=== PATIENT | female | born 1975 | race American Indian/Alaskan Native ===

== ENCOUNTER 2016-11-30 21:57 | Inpatient (IN) | payer MEDICAID ==
[2016-11-30] MEDS ORDERED: DiphenhydrAMINE 50 mg/ml Inj IVP STA (22:56)
--- NOTE | 2016-11-30 22:56 | C.PDOC ---
History Of Present Illness 41 year old female presents to the ED with complaints of swelling to her lower lip since 13:00 today. Patient states the swelling began after she had a root canal done at her dentist's office. She notes she has had similar symptoms before after taking Clindamycin and she is unsure if she was given anything other than Novocain. Denies throat swelling, difficulty breathing, drooling, or any other complaints at this time. Time Seen by Provider: 11/30/16 22:48 Chief Complaint (Nursing): Allergic Reaction History Per: Patient History/Exam Limitations: no limitations Onset/Duration Of Symptoms: Hrs Current Symptoms Are (Timing): Still Present Possible Cause: Medication Associated Symptoms: Swelling. denies: Trouble Swallowing Severity: Mild Past Medical History Reviewed: Historical Data, Nursing Documentation, Vital Signs Vital Signs: Last Vital Signs Temp 98 F 12/01/16 08:12 Pulse 58 L 12/01/16 08:12 Resp 18 12/01/16 08:12 BP 112/59 L 12/01/16 08:12 Pulse Ox 97 12/01/16 08:12 - Medical History PMH: Anxiety, Asthma, Depression, Gastritis Comment Only: Bipolar Disorder (anxiety) Surgical History: Appendectomy Family History: States: Unknown Family Hx - Social History Hx Tobacco Use: No Hx Alcohol Use: No Hx Substance Use: No - Immunization History Hx Tetanus Toxoid Vaccination: No Hx Influenza Vaccination: No Hx Pneumococcal Vaccination: No Review Of Systems Except As Marked, All Systems Reviewed And Found Negative. Constitutional: Negative for: Fever, Chills ENT: Positive for: Other (+Lower lip swelling). Negative for: Throat Swelling Respiratory: Negative for: Shortness of Breath Gastrointestinal: Negative for: Nausea, Vomiting Skin: Negative for: Rash Physical Exam - Physical Exam Appears: Non-toxic, No Acute Distress Skin: Normal Color, Warm, Dry, No Rash Head: Atraumatic, Normacephalic Eye(s): bilateral: Normal Inspection Oral Mucosa: Moist Tongue: Normal Appearing, No Swelling Lips: Swelling (+Edema to lower lip) Gingiva: Normal Appearing Throat: Normal, No Erythema, No Exudate, No Drooling, Other (+Uvula midline) Neck: Supple Chest: Symmetrical Cardiovascular: Rhythm Regular Respiratory: Normal Breath Sounds, No Accessory Muscle Use, No Rales, No Rhonchi , No Wheezing Extremity: Normal ROM, No Deformity Neurological/Psych: Oriented x3, Normal Speech, Normal Cognition ED Course And Treatment - Laboratory Results Result Diagrams: 12/01/16 01:38 12/01/16 01:38 O2 Sat by Pulse Oximetry: 98 (Room air) Pulse Ox Interpretation: Normal Medical Decision Making Medical Decision Making: Progress: Upon reevaluation, patient is resting comfortably however lip is unchanged. disc w dr lynn, will admit for obs. Disposition - Disposition Disposition: HOSPITALIZED Disposition Time: 01:00 Condition: STABLE - Clinical Impression Clinical Impression: Angioedema - Scribe Statement The provider has reviewed the documentation as recorded by the Scribe Edna Chanel. Provider Attestation: All medical record entries made by the Scribe were at my direction and personally dictated by me. I have reviewed the chart and agree that the record accurately reflects my personal performance of the history, physical exam, medical decision making, and the department course for this patient. I have also personally directed, reviewed, and agree with the discharge instructions and disposition.
[2016-11-30] MEDS ORDERED: DiphenhydrAMINE 50 mg/ml Inj ONE (23:00)
[2016-12-01 01:40] LABS: BASO % 0.3 % (0.0-2.0); EOS % 0.2 % (0.0-4.0); HEMATOCRIT 30.7 % (34.0-47.0); LYMPH % 10.5 % (20.0-40.0); MEAN CELL VOLUME 83.3 fL (81.0-99.0); MEAN CORPUSCULAR HEMOGLOBIN 26.4 pg (27.0-31.0); MEAN CORPUSCULAR HGB CONC 31.7 g/dL (33.0-37.0); MEAN PLATELET VOLUME 7.4 fL (7.2-11.7); MONO # 0.2 K/uL (0.0-0.8); MONO % 2.2 % (0.0-10.0); WHITE BLOOD COUNT 9.5 K/uL (4.8-10.8)
[2016-12-01 01:58] LABS: CHLORIDE 105 mmol/L (98-107); POTASSIUM 3.9 mmol/L (3.6-5.2); SODIUM 140 mmol/L (132-148)
[2016-12-01 02:00] LABS: ALKALINE PHOSPHATASE 60 U/L (38-126); AST/SGOT 21 U/L (14-36); BILIRUBIN,TOTAL 0.4 mg/dL (0.2-1.3); CARBON DIOXIDE 23 mmol/L (22-30); GFR AFRICAN-AMERICAN > 60; TOTAL PROTEIN 7.4 g/dL (6.3-8.3)
[2016-12-01 02:01] LABS: ALT/SGPT 27 U/L (9-52); BLOOD UREA NITROGEN 12 mg/dL (7-17); CALCIUM 8.6 mg/dl (8.6-10.4); GLUCOSE,RANDOM 104 mg/dL (65-105)
[2016-12-01] MEDS ORDERED: MethylPREDNISolone 40 mg Vial ONE (05:26)
--- NOTE | 2016-12-01 18:09 | CP.PCM.CON ---
Past Patient History - Infectious Disease Hx of Infectious Diseases: None - Past Medical History & Family History Past Medical History?: Yes - Past Social History Smoking Status: Never Smoked - PULMONARY Hx Asthma: Yes - MUSCULOSKELETAL/RHEUMATOLOGICAL Hx Falls: No - GASTROINTESTINAL Hx Gastritis: Yes - PSYCHIATRIC Hx Anxiety: Yes Hx Bipolar Disorder: (anxiety) Hx Depression: Yes Hx Substance Use: No - SURGICAL HISTORY Hx Appendectomy: Yes - ANESTHESIA Hx Anesthesia: Yes Hx Anesthesia Reactions: No Meds Allergies/Adverse Reactions: Allergies Allergy/AdvReac Type Severity Reaction Status Date / Time ciprofloxacin [From Cipro] Allergy Verified 10/27/16 20:44 ciprofloxacin HCl Allergy Verified 10/27/16 20:44 [From Cipro] clindamycin Allergy Verified 10/27/16 20:44 Penicillins Allergy Verified 10/27/16 20:44 seafood Allergy Uncoded 10/27/16 20:44 - Medications Medications: Current Medications Diphenhydramine HCl (Benadryl) 25 mg PO Q8 [facility] Last Admin: 12/01/16 13:30 Dose: 25 mg Methylprednisolone (Solu-Medrol) 60 mg IV Q8 [facility] Last Admin: 12/01/16 13:30 Dose: 60 mg Physical Exam - Head Exam Head Exam: ATRAUMATIC, NORMAL INSPECTION, NORMOCEPHALIC - Eye Exam Eye Exam: EOMI, Normal appearance, PERRL Pupil Exam: NORMAL ACCOMODATION, PERRL - ENT Exam ENT Exam: Mucous Membranes Moist, Normal Exam - Neck Exam Neck exam: Positive for: Normal Inspection - Respiratory Exam Respiratory Exam: Decreased Breath Sounds - Cardiovascular Exam Cardiovascular Exam: REGULAR RHYTHM, +S1, +S2 - GI/Abdominal Exam GI & Abdominal Exam: Diminished Bowel Sounds, Soft - Rectal Exam Rectal Exam: Deferred Results - Vital Signs Recent Vital Signs: Last Vital Signs Temp 98 F 12/01/16 15:39 Pulse 59 L 12/01/16 15:39 Resp 18 12/01/16 15:39 BP 113/66 12/01/16 15:39 Pulse Ox 99 12/01/16 15:39 - Labs Result Diagrams: 12/01/16 01:38 12/01/16 01:38 Labs: Laboratory Results - last 24 hr 12/01/16 01:38 WBC 9.5 RBC 3.69 L Hgb 9.7 L Hct 30.7 L MCV 83.3 D MCH 26.4 L MCHC 31.7 L RDW 15.0 H Plt Count 273 MPV 7.4 Neut % (Auto) 86.8 H Lymph % (Auto) 10.5 L [place] % (Auto) 2.2 Eos % (Auto) 0.2 Baso % (Auto) 0.3 Neut # 8.3 H Lymph # 1.0 [place] # 0.2 Eos # 0.0 Baso # 0.0 Sodium 140 Potassium 3.9 Chloride 105 Carbon Dioxide 23 Anion Gap 16 BUN 12 Creatinine 0.7 Est GFR ( Amer) > 60 Est GFR (Non-Af Amer) > 60 Random Glucose 104 Calcium 8.6 Total Bilirubin 0.4 AST 21 ALT 27 Alkaline Phosphatase 60 Total Protein 7.4 Albumin 3.8 Globulin 3.7 Albumin/Globulin Ratio 1.0
--- NOTE | 2016-12-01 22:45 | CP.PCM.HP ---
Past Patient History - Infectious Disease Hx of Infectious Diseases: None - Past Medical History & Family History Past Medical History?: Yes - Past Social History Smoking Status: Never Smoked - PULMONARY Hx Asthma: Yes - MUSCULOSKELETAL/RHEUMATOLOGICAL Hx Falls: No - GASTROINTESTINAL Hx Gastritis: Yes - PSYCHIATRIC Hx Anxiety: Yes Hx Bipolar Disorder: (anxiety) Hx Depression: Yes Hx Substance Use: No - SURGICAL HISTORY Hx Appendectomy: Yes - ANESTHESIA Hx Anesthesia: Yes Hx Anesthesia Reactions: No Meds Allergies/Adverse Reactions: Allergies Allergy/AdvReac Type Severity Reaction Status Date / Time ciprofloxacin [From Cipro] Allergy Verified 10/27/16 20:44 ciprofloxacin HCl Allergy Verified 10/27/16 20:44 [From Cipro] clindamycin Allergy Verified 10/27/16 20:44 Penicillins Allergy Verified 10/27/16 20:44 seafood Allergy Uncoded 10/27/16 20:44 Results - Vital Signs Recent Vital Signs: Last Vital Signs Temp 98 F 12/01/16 15:39 Pulse 59 L 12/01/16 16:00 Resp 18 12/01/16 15:39 BP 113/66 12/01/16 15:39 Pulse Ox 99 12/01/16 15:39 - Labs Result Diagrams: 12/01/16 01:38 12/01/16 01:38 Labs: Laboratory Results - last 24 hr 12/01/16 01:38 WBC 9.5 RBC 3.69 L Hgb 9.7 L Hct 30.7 L MCV 83.3 D MCH 26.4 L MCHC 31.7 L RDW 15.0 H Plt Count 273 MPV 7.4 Neut % (Auto) 86.8 H Lymph % (Auto) 10.5 L [place] % (Auto) 2.2 Eos % (Auto) 0.2 Baso % (Auto) 0.3 Neut # 8.3 H Lymph # 1.0 [place] # 0.2 Eos # 0.0 Baso # 0.0 Sodium 140 Potassium 3.9 Chloride 105 Carbon Dioxide 23 Anion Gap 16 BUN 12 Creatinine 0.7 Est GFR ( Amer) > 60 Est GFR (Non-Af Amer) > 60 Random Glucose 104 Calcium 8.6 Total Bilirubin 0.4 AST 21 ALT 27 Alkaline Phosphatase 60 Total Protein 7.4 Albumin 3.8 Globulin 3.7 Albumin/Globulin Ratio 1.0
--- NOTE | 2016-12-02 12:49 | CP.PCM.PN ---
Subjective - Date & Time of Evaluation Date of Evaluation: 12/02/16 Time of Evaluation: 12:00 - Subjective Subjective: clinically same Objective - Vital Signs/Intake and Output Vital Signs (last 24 hours): Temp Pulse Resp BP Pulse Ox 97.7 F 51 L 20 105/65 97 12/02/16 07:49 12/02/16 08:12 12/02/16 07:49 12/02/16 07:49 12/02/16 07:49 - Medications Medications: Current Medications Diphenhydramine HCl (Benadryl) 25 mg PO Q8 [facility] Last Admin: 12/02/16 06:45 Dose: 25 mg Methylprednisolone (Solu-Medrol) 60 mg IV Q8 [facility] Last Admin: 12/02/16 06:45 Dose: 60 mg - Labs Labs: 12/01/16 01:38 12/01/16 01:38 - Constitutional Appears: Well - Head Exam Head Exam: ATRAUMATIC, NORMAL INSPECTION, NORMOCEPHALIC - Eye Exam Eye Exam: EOMI, Normal appearance, PERRL Pupil Exam: NORMAL ACCOMODATION, PERRL - ENT Exam ENT Exam: Mucous Membranes Moist, Normal Exam - Neck Exam Neck Exam: Full ROM, Normal Inspection. absent: Lymphadenopathy - Respiratory Exam Respiratory Exam: Decreased Breath Sounds - Cardiovascular Exam Cardiovascular Exam: REGULAR RHYTHM, +S1, +S2 - GI/Abdominal Exam GI & Abdominal Exam: Soft, Diminished Bowel Sounds - Rectal Exam Rectal Exam: Deferred Assessment and Plan - Assessment and Plan (Free Text) Plan: discharge tomorrow jessica same iv solumedrol midly lip swollen no breathing difficulty pt adv not to take either clindamycin or novacine nad pt understood
[2016-12-02] MEDS: MethylPREDNISolone 40 mg Vial IV SCH ×2 (14:17→21:47)
[2016-12-03] MEDS: MethylPREDNISolone 40 mg Vial IV SCH ×3 (06:37→21:52)
--- NOTE | 2016-12-03 09:28 | CP.PCM.PN ---
Subjective - Date & Time of Evaluation Date of Evaluation: 12/03/16 Time of Evaluation: 11:00 - Subjective Subjective: Dr. Chung service: Patient is seen and examined in room. She reports coming to the hospital because of swelling around her lips and mouth after having a dental procedure. She reports no prior similar experience. She thinks she might be allergic to the Novacaine given at the dental office. Objective - Vital Signs/Intake and Output Vital Signs (last 24 hours): Temp Pulse Resp BP Pulse Ox 98.4 F 50 L 20 117/72 99 12/03/16 00:00 12/03/16 00:00 12/03/16 00:00 12/03/16 00:00 12/03/16 00:00 - Medications Medications: Current Medications Diphenhydramine HCl (Benadryl) 25 mg PO Q8 [facility] Last Admin: 12/03/16 06:37 Dose: 25 mg Methylprednisolone (Solu-Medrol) 60 mg IV Q8 [facility] Last Admin: 12/03/16 06:37 Dose: 60 mg - Labs Labs: 12/01/16 01:38 12/01/16 01:38 - Constitutional Appears: Non-toxic, No Acute Distress - Head Exam Head Exam: NORMAL INSPECTION - Eye Exam Eye Exam: Normal appearance - ENT Exam ENT Exam: Normal Exam - Respiratory Exam Respiratory Exam: Clear to Ausculation Bilateral. absent: Rhonchi, Wheezes - Cardiovascular Exam Cardiovascular Exam: Bradycardia, REGULAR RHYTHM, +S1, +S2. absent: Gallop, Rubs - GI/Abdominal Exam GI & Abdominal Exam: Soft - Extremities Exam Extremities Exam: Pedal Edema Assessment and Plan (1) Angioedema Assessment & Plan: Mostly resolved, continue with steroids, given medrol dose pack on dischage Status: Acute (2) Tachy-luz maria syndrome Assessment & Plan: Dr. Calhoun consulted, will do echo tomorrow and monitor patient on tele over night. Most likely dc tomorrow if echo is good. Status: Acute
--- NOTE | 2016-12-03 09:31 | CP.PCM.PN ---
Subjective - Date & Time of Evaluation Date of Evaluation: 12/03/16 Time of Evaluation: 10:40 - Subjective Subjective: clinically same Objective - Vital Signs/Intake and Output Vital Signs (last 24 hours): Temp Pulse Resp BP Pulse Ox 98.4 F 50 L 20 117/72 99 12/03/16 00:00 12/03/16 00:00 12/03/16 00:00 12/03/16 00:00 12/03/16 00:00 - Medications Medications: Current Medications Diphenhydramine HCl (Benadryl) 25 mg PO Q8 [facility] Last Admin: 12/03/16 06:37 Dose: 25 mg Methylprednisolone (Solu-Medrol) 60 mg IV Q8 [facility] Last Admin: 12/03/16 06:37 Dose: 60 mg - Labs Labs: 12/01/16 01:38 12/01/16 01:38 - Constitutional Appears: Well - Head Exam Head Exam: ATRAUMATIC, NORMAL INSPECTION, NORMOCEPHALIC - Eye Exam Eye Exam: EOMI, Normal appearance, PERRL Pupil Exam: NORMAL ACCOMODATION, PERRL - ENT Exam ENT Exam: Mucous Membranes Moist, Normal Exam - Neck Exam Neck Exam: Full ROM, Normal Inspection. absent: Lymphadenopathy - Respiratory Exam Respiratory Exam: Decreased Breath Sounds - Cardiovascular Exam Cardiovascular Exam: REGULAR RHYTHM, +S1, +S2 - GI/Abdominal Exam GI & Abdominal Exam: Soft, Diminished Bowel Sounds - Rectal Exam Rectal Exam: Deferred
[2016-12-03] MEDS ORDERED: Petrolatum Oint Foilpak (5 gm) TOP PRN (10:40)
--- NOTE | 2016-12-03 15:37 | CP.PCM.CON ---
Past Patient History - Infectious Disease Hx of Infectious Diseases: None - Past Medical History & Family History Past Medical History?: Yes - Past Social History Smoking Status: Never Smoked - PULMONARY Hx Asthma: Yes - MUSCULOSKELETAL/RHEUMATOLOGICAL Hx Falls: No - GASTROINTESTINAL Hx Gastritis: Yes - PSYCHIATRIC Hx Anxiety: Yes Hx Bipolar Disorder: (anxiety) Hx Depression: Yes Hx Substance Use: No - SURGICAL HISTORY Hx Appendectomy: Yes - ANESTHESIA Hx Anesthesia: Yes Hx Anesthesia Reactions: No Meds Home Medications: Home Medication List Medication Instructions Recorded Confirmed Type Methylprednisolone [Medrol Dose See Taper PO DAILY #21 mg 12/03/16 Rx Pack (21 tabs)] Allergies/Adverse Reactions: Allergies Allergy/AdvReac Type Severity Reaction Status Date / Time ciprofloxacin [From Cipro] Allergy Verified 10/27/16 20:44 ciprofloxacin HCl Allergy Verified 10/27/16 20:44 [From Cipro] clindamycin Allergy Verified 10/27/16 20:44 Penicillins Allergy Verified 10/27/16 20:44 seafood Allergy Uncoded 10/27/16 20:44 - Medications Medications: Current Medications Diphenhydramine HCl (Benadryl) 25 mg PO Q8 [facility] Last Admin: 12/03/16 14:27 Dose: 25 mg Emollient Ointment (Vaseline Oint) 5 gm TOP Q4 PRN PRN Reason: Dry skin Methylprednisolone (Solu-Medrol) 60 mg IV Q8 [facility] Last Admin: 12/03/16 14:28 Dose: 60 mg Pantoprazole Sodium (Protonix Inj) 40 mg IVP DAILY [facility] Last Admin: 12/03/16 11:13 Dose: Not Given Results - Vital Signs Recent Vital Signs: Last Vital Signs Temp 98 F 12/03/16 08:00 Pulse 46 L 12/03/16 08:00 Resp 20 12/03/16 08:00 BP 113/58 L 12/03/16 08:00 Pulse Ox 99 12/03/16 08:00 - Labs Result Diagrams: 12/01/16 01:38 12/01/16 01:38
[2016-12-04] MEDS: MethylPREDNISolone 40 mg Vial IV SCH ×2 (06:21→13:26)
[2016-12-04 07:30] LABS: HEMATOCRIT 35.9 % (34.0-47.0); LYMPH # 1.6 K/uL (1.0-4.3); LYMPH % 9.3 % (20.0-40.0); MEAN CELL VOLUME 84.4 fL (81.0-99.0); MEAN CORPUSCULAR HEMOGLOBIN 26.2 pg (27.0-31.0); MEAN CORPUSCULAR HGB CONC 31.1 g/dL (33.0-37.0); MEAN PLATELET VOLUME 8.5 fL (7.2-11.7); MONO # 0.8 K/uL (0.0-0.8); MONO % 4.7 % (0.0-10.0); NRBC % 0.1 % (0.0-2.0); PLATELET COUNT 332 K/uL (130-400); RED CELL DISTRIBUTION WIDTH 14.7 % (11.5-14.5)
[2016-12-04 07:31] LABS: CHLORIDE 93 mmol/L (98-107); POTASSIUM 3.9 mmol/L (3.6-5.2); SODIUM 138 mmol/L (132-148); WHITE BLOOD COUNT 17.1 K/uL (4.8-10.8)
[2016-12-04 07:33] LABS: AST/SGOT 13 U/L (14-36); BILIRUBIN,TOTAL 0.7 mg/dL (0.2-1.3); CARBON DIOXIDE 30 mmol/L (22-30); GFR AFRICAN-AMERICAN > 60
[2016-12-04 07:34] LABS: ALKALINE PHOSPHATASE 53 U/L (38-126); ALT/SGPT 13 U/L (9-52); BLOOD UREA NITROGEN 16 mg/dL (7-17); CALCIUM 8.5 mg/dl (8.6-10.4); GLUCOSE,RANDOM 125 mg/dL (65-105); PHOSPHOROUS 3.4 mg/dL (2.5-4.5); TOTAL PROTEIN 7.7 g/dL (6.3-8.3)
[2016-12-04 07:35] LABS: MAGNESIUM 2.1 mg/dL (1.6-2.3)
[2016-12-04 09:00] VITALS: TEMP 98.1; O2SAT 98
[2016-12-04 09:45] LABS: LARGE PLATELETS PRESENT; NEUTROPHIL 91 % (50-75); TOTAL CELLS COUNTED 100
--- NOTE | 2016-12-04 16:20 | CP.PCM.PN ---
Subjective - Date & Time of Evaluation Date of Evaluation: 12/04/16 Time of Evaluation: 16:18 - Subjective Subjective: 41 y/o female admitted with with angioedema, possible allergic reaction to novacaine given at dental office, Pt seen and examined today, no swelling noted at lip and mouth, no drooling, lungs CTA b/l, resp easy and unlabored. NAD. Patient to be discharged home per Dr. Chung. She will be discharged home with a medrol dose pack. Benadryl 25 mg po as needed for itching. She will follow up with Dr. Calhoun in his office after discharge. She will return to ED if symptoms persist or worsen. Objective - Vital Signs/Intake and Output Vital Signs (last 24 hours): Temp Pulse Resp BP Pulse Ox 98.1 F 46 L 18 144/72 98 12/04/16 07:00 12/04/16 08:12 12/04/16 07:00 12/04/16 07:00 12/04/16 07:00 - Medications Medications: Current Medications Diphenhydramine HCl (Benadryl) 25 mg PO Q8 [facility] Last Admin: 12/04/16 13:26 Dose: 25 mg Emollient Ointment (Vaseline Oint) 5 gm TOP Q4 PRN PRN Reason: Dry skin Methylprednisolone (Solu-Medrol) 60 mg IV Q8 [facility] Last Admin: 12/04/16 13:26 Dose: 60 mg Pantoprazole Sodium (Protonix Inj) 40 mg IVP DAILY [facility] Last Admin: 12/04/16 09:21 Dose: 40 mg - Labs Labs: 12/04/16 07:08 12/04/16 07:08
[2016-12-04 16:26] VITALS: BP 111/70; RESP 20
[2016-12-04 16:54] VITALS: PULSE 54
--- NOTE | 2016-12-04 17:59 | CP.PCM.PN ---
Subjective - Date & Time of Evaluation Date of Evaluation: 12/04/16 Time of Evaluation: 07:10 Objective - Vital Signs/Intake and Output Vital Signs (last 24 hours): Temp Pulse Resp BP Pulse Ox 98.1 F 54 L 20 111/70 98 12/04/16 16:25 12/04/16 16:25 12/04/16 16:25 12/04/16 16:25 12/04/16 16:25 - Labs Labs: 12/04/16 07:08 12/04/16 07:08
--- NOTE | 2016-12-06 22:45 | CARD ---
APPROVED REPORT EXAM: Two-dimensional and M-mode echocardiogram with Doppler and color Doppler. Other Information Quality : GoodRhythm : NSR INDICATION Dizziness and Vertigo M-Mode DIMENSIONS RVDd2.14 (2.1-3.2cm)Left Atrium (MM)4.13 (2.5-4.0cm) IVSd1.18 (0.7-1.1cm)Aortic Root2.66 (2.2-3.7cm) LVDd4.76 (4.0-5.6cm)Aortic Cusp Exc.1.70 (1.5-2.0cm) PWd1.18 (0.7-1.1cm)FS (%) 48 % LVDs2.47 (2.0-3.8cm)LVEF (%)79 (>50%) Aortic Valve AoV Peak Akrpsbtd859.4cm/Nitesh Peak GR.11mmHg Mitral Valve MV E Oxqneoxm87.7cm/sMV A Dklcxzrm10.4cm/sE/A ratio1.2 TDI E/Lateral E'0.0E/Medial E'0.0 Tricuspid Valve TR Peak Zphgrvzm479mg/sTR Peak Gr.[id number] LEFT VENTRICLE The left ventricle is normal size. There is borderline to mild concentric left ventricular hypertrophy. Left ventricle systolic function is normal. The Ejection Fraction is >70%. There is normal LV segmental wall motion. The left ventricular diastolic function is normal. RIGHT VENTRICLE The right ventricle is normal size. There is normal right ventricular wall thickness. The right ventricular systolic function is normal. ATRIA The left atrium is mildly dilated. The right atrium size is normal. The interatrial septum is intact with no evidence for an atrial septal defect. AORTIC VALVE The aortic valve is normal in structure. No aortic regurgitation is present. There is no aortic valvular stenosis. There is no aortic valvular vegetation. MITRAL VALVE The mitral valve is normal in structure. There is no evidence of mitral valve prolapse. There is no mitral valve stenosis. Mitral regurgitation is trace to mild. TRICUSPID VALVE The tricuspid valve is normal in structure. There is mild tricuspid regurgitation. Right ventricular systolic pressure is estimated at less than 30 mmHg. There is no pulmonary hypertension. PULMONIC VALVE The pulmonic valve is not well visualized. There is no pulmonic valvular regurgitation. GREAT VESSELS The aortic root is normal in size. PERICARDIAL EFFUSION There is no significant pericardial effusion. <Conclusion> Left ventricle systolic function is normal. The Ejection Fraction is >70%. Hypertensive heart disease. No aortic regurgitation is present. Mitral regurgitation is trace to mild. There is mild tricuspid regurgitation. There is no pulmonary hypertension. There is no pulmonic valvular regurgitation.
== END 2016-12-04 17:05 | disposition home or self-care (01) | DRG 447 ==
LOC: C.ER 21:57 → UNDOADMOB 12-01 01:02 → C.9E 12-01 01:02 → C.5T 12-01 06:48 → C.9E 12-01 06:48 → C.5T 12-01 07:55 → INTOOBSV 12-01 13:56 → OBSVTOIN 12-01 13:56 → C.5T 12-01 17:43 → C.9E 12-03 13:56 → C.5T 12-03 13:56 → OBSVTOIN 12-03 13:56 → UNDODISIN 12-04 17:05
PROVIDERS: ADMIT Internal Medicine Nephrology; ATTEND Internal Medicine Nephrology
DX: T78.3XXA Angioneurotic edema, initial encounter (principal); I49.5 Sick sinus syndrome; F31.9 Bipolar disorder, unspecified; J45.909 Unspecified asthma, uncomplicated

== ENCOUNTER 2016-12-13 15:54 | Emergency (ER) | payer MEDICAID ==
[2016-12-13] MEDS ORDERED: Sodium Chloride 0.9% 1,000 ML IV ONE (19:11)
[2016-12-13 20:07] LABS: RBC URINE 7 /hpf (0-3); URINE BACTERIA RARE (<OCC); URINE BILIRUBIN NEGATIVE (NEGATIVE); URINE BLOOD NEGATIVE (NEGATIVE); URINE COLOR Yellow (YELLOW); URINE GLUCOSE (UA) NORMAL (Normal); URINE KETONE NEGATIVE (NEGATIVE); URINE LEUKOCYTE ESTERASE NEG Leu/uL (Negative); URINE PROTEIN NEGATIVE (NEGATIVE); URINE UROBILINOGEN NORMAL mg/dL (0.2-1.0); WBC URINE 2 /hpf (0-5)
[2016-12-13] MEDS ORDERED: Sodium Chloride 0.9% 1,000 ML ONE (20:08)
[2016-12-13 20:12] LABS: BASO # 0.2 K/uL (0.0-0.2); BASO % 1.3 % (0.0-2.0); EOS # 0.1 K/uL (0.0-0.7); EOS % 0.8 % (0.0-4.0); HEMATOCRIT 33.1 % (34.0-47.0); LYMPH % 25.7 % (20.0-40.0); MEAN CELL VOLUME 83.8 fL (81.0-99.0); MEAN CORPUSCULAR HEMOGLOBIN 26.3 pg (27.0-31.0); MEAN CORPUSCULAR HGB CONC 31.3 g/dL (33.0-37.0); MEAN PLATELET VOLUME 7.4 fL (7.2-11.7); MONO # 0.6 K/uL (0.0-0.8); MONO % 4.7 % (0.0-10.0); RED CELL DISTRIBUTION WIDTH 15.1 % (11.5-14.5); WHITE BLOOD COUNT 11.9 K/uL (4.8-10.8)
[2016-12-13 20:18] LABS: CHLORIDE 98 mmol/L (98-107); SODIUM 135 mmol/L (132-148)
[2016-12-13 20:20] LABS: GFR AFRICAN-AMERICAN > 60
[2016-12-13 20:21] LABS: ALB/GLOB RATIO 1.2 (1.0-2.1); ALKALINE PHOSPHATASE 61 U/L (38-126); ALT/SGPT 17 U/L (9-52); AST/SGOT 19 U/L (14-36); BILIRUBIN,TOTAL 0.4 mg/dL (0.2-1.3); BLOOD UREA NITROGEN 18 mg/dL (7-17); CALCIUM 8.8 mg/dl (8.6-10.4); CARBON DIOXIDE 23 mmol/L (22-30); GLUCOSE,RANDOM 115 mg/dL (65-105); MAGNESIUM 2.3 mg/dL (1.6-2.3); TOTAL PROTEIN 7.5 g/dL (6.3-8.3)
[2016-12-13] MEDS ORDERED: DiphenhydrAMINE 50 mg/ml Inj IVP STA (20:27)
[2016-12-13] MEDS ORDERED: DiphenhydrAMINE 50 mg/ml Inj ONE (20:29)
[2016-12-13 20:36] VITALS: O2SAT 98
--- NOTE | 2016-12-13 21:44 | C.PDOC ---
History Of Present Illness Pt c/o feeling tired/generalized weakness. Time Seen by Provider: 12/13/16 18:58 History Per: Patient Onset/Duration Of Symptoms: Days (few), Waxing/Waning Current Symptoms Are (Timing): Still Present Current Symptoms: Fatigue/malaise Fall Associated With With Symptoms: No Severity: Moderate Additional History Per: Prior Records - Symptoms Of CVA Associated Symptoms: denies: Impaired Speech, Seizure Activity, New Vision Deficit(Left), New Vision Deficit(Right), New Confusion Recent Head Trauma: No Past Medical History Reviewed: Historical Data, Nursing Documentation, Vital Signs Vital Signs: Last Vital Signs Temp 98 F 12/13/16 20:31 Pulse 106 H 12/13/16 20:31 Resp 18 12/13/16 20:31 BP 139/87 12/13/16 20:31 Pulse Ox 98 12/13/16 20:31 - Medical History PMH: Anxiety, Asthma, Depression, Gastritis Comment Only: Bipolar Disorder (anxiety) Surgical History: Appendectomy Family History: States: Unknown Family Hx - Social History Hx Tobacco Use: No Hx Alcohol Use: No Hx Substance Use: No - Immunization History Hx Tetanus Toxoid Vaccination: No Hx Influenza Vaccination: No Hx Pneumococcal Vaccination: No Review Of Systems Except As Marked, All Systems Reviewed And Found Negative. Constitutional: Negative for: Fever, Weakness Cardiovascular: Negative for: Chest Pain Respiratory: Positive for: Shortness of Breath. Negative for: Hemoptysis Gastrointestinal: Positive for: Nausea. Negative for: Vomiting, Abdominal Pain , Diarrhea Genitourinary: Negative for: Dysuria Musculoskeletal: Negative for: Neck Pain, Back Pain Skin: Negative for: Rash Neurological: Negative for: Weakness, Numbness, Seizures, Altered Mental Status Physical Exam - Physical Exam Appears: Non-toxic, No Acute Distress Skin: Normal Color, Warm, Dry, No Rash Head: Atraumatic, Normacephalic Eye(s): bilateral: PERRL, EOMI Neck: Normal ROM, Supple Cardiovascular: Rhythm Regular Respiratory: Normal Breath Sounds, No Accessory Muscle Use Gastrointestinal/Abdominal: Soft, No Tenderness Back: No CVA Tenderness Extremity: Normal ROM, No Pedal Edema, No Calf Tenderness Neurological/Psych: Oriented x3, Normal Motor, Normal Sensation ED Course And Treatment - Laboratory Results Result Diagrams: 12/13/16 20:06 12/13/16 20:06 Interpretation Of Abnormal: Mild anemia. Urine POC: Negative ECG: Interpreted By Me, Viewed By Me ECG Rhythm: Sinus Rhythm ECG Interpretation: No Acute Changes Rate From EC O2 Sat by Pulse Oximetry: 98 Pulse Ox Interpretation: Normal - Radiology CXR: Interpreted by Me, Viewed By Me CXR Interpretation: Yes: No Acute Disease, Heart Size (WNL) Progress - Interventions Interventions:: Observation, Intravenous fluid - Medications Administered Intravenous: Antiemetic, Antihistamine (H-1) - Data Reviewed Data Reviewed: Lab, Diagnostic imaging, EKG, Old records - Patient Status Patient status: Mostly improved - Continuity of Care Discussed patient case with:: Patient, ED Nurse - Patient Plan Patient Plan: Discharge, F/U with PCP, Continue present meds Disposition Counseled Patient/Family Regarding: Studies Performed, Diagnosis, Need For Followup, Rx Given - Disposition Referrals: David Cooper Jr., MD [Medical Doctor] - Disposition: HOME/ ROUTINE Disposition Time: 21:54 Condition: IMPROVED Additional Instructions: Drink plenty of fluids. Follow up with your doctor for further evaluation and treatment. Return to the ER if you develop chest pain, pass out, worsening of symptoms or if you have any other concerns. Prescriptions: Ferrous Sulfate [Feosol] 325 mg PO TID #30 tab Multivit with Iron-Minerals [Super Multiple] 1 each PO DAILY #30 tablet Instructions: Anemia (ED) Print Language: SAMI - Clinical Impression Clinical Impression: Mild anemia, Malaise and fatigue
[2016-12-13 22:04] VITALS: BP 106/55; PULSE 73; RESP 15; TEMP 98.3
--- NOTE | 2016-12-14 09:59 | RAD ---
PROCEDURE: CHEST RADIOGRAPH, 1 VIEW HISTORY: SOB COMPARISON: Comparison is made to 01/14/2013 FINDINGS: LUNGS: Clear. PLEURA: No pneumothorax or pleural fluid seen. CARDIOVASCULAR: Normal. OSSEOUS STRUCTURES: No significant abnormalities. VISUALIZED UPPER ABDOMEN: Normal. OTHER FINDINGS: None. IMPRESSION: No active disease.
--- NOTE | 2016-12-15 19:05 | CARD ---
APPROVED REPORT EKG Measurement Heart [id number] <Conclusion> Normal sinus rhythm Normal ECG
== END 2016-12-13 22:14 | disposition home or self-care (01) ==
LOC: C.ER 15:54
DX: D64.9 Anemia, unspecified (principal); R53.81 Other malaise; R53.83 Other fatigue
CPT/HCPCS: 71010; 80053; 81001; 83735; 84484; 84703; 85025; 93005; 96361; 96374; 96375; 99285; J1200; J2765; J7040

== ENCOUNTER 2017-08-15 18:20 | Emergency (ER) | payer OTHER, MEDICAID ==
[2017-08-15 18:36] VITALS: BP 127/81; PULSE 65; RESP 18; TEMP 97.9; O2SAT 100
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
== END 2017-08-15 19:20 | disposition home or self-care (01) ==
LOC: C.ER 18:20
DX: S13.4XXA Sprain of ligaments of cervical spine, initial encounter (principal); V49.9XXA Car occupant (driver) (passenger) injured in unspecified traffic accident, initial encounter

== ENCOUNTER 2017-10-31 17:17 | Emergency (ER) | payer MEDICAID ==
[2017-10-31 18:34] VITALS: BP 126/88
--- NOTE | 2017-10-31 19:39 | C.PDOC ---
History Of Present Illness 42 year old female presents to the ED for evaluation of flu like symptoms x2-3 days. Patient complains of body aches, fevers, cough, headache and sore throat. No vomiting or diarrhea. No recent travel. Patient also complaining of right eye pain. Time Seen by Provider: 10/31/17 19:24 Chief Complaint (Nursing): Flu-like Symptoms History Per: Patient History/Exam Limitations: no limitations Onset/Duration Of Symptoms: Days Current Symptoms Are (Timing): Still Present Location Of Pain: Throat, Diffuse Myalgias Associated Symptoms: Fever, Sore Throat, Cough, Myalgias. denies: Vomiting, Diarrhea Recent travel outside of the [place]: No Past Medical History Reviewed: Historical Data, Nursing Documentation, Vital Signs Vital Signs: Last Vital Signs Temp 98.8 F 10/31/17 20:29 Pulse 71 10/31/17 20:29 Resp 20 10/31/17 20:29 BP 126/88 10/31/17 18:31 Pulse Ox 99 11/01/17 03:24 - Medical History PMH: Anxiety, Asthma, Depression, Gastritis Comment Only: Bipolar Disorder (anxiety) Surgical History: Appendectomy Family History: States: Unknown Family Hx - Social History Hx Tobacco Use: No Hx Alcohol Use: No Hx Substance Use: No - Immunization History Hx Tetanus Toxoid Vaccination: No Hx Influenza Vaccination: No Hx Pneumococcal Vaccination: No Review Of Systems Except As Marked, All Systems Reviewed And Found Negative. Constitutional: Positive for: Fever. Negative for: Chills Eyes: Positive for: Pain ENT: Positive for: Throat Pain. Negative for: Ear Pain Cardiovascular: Negative for: Chest Pain Respiratory: Positive for: Cough. Negative for: Shortness of Breath Gastrointestinal: Negative for: Nausea, Vomiting, Abdominal Pain, Diarrhea Musculoskeletal: Positive for: Other (myalgias) Skin: Negative for: Rash Neurological: Positive for: Headache Physical Exam - Physical Exam Appears: Well, No Acute Distress Skin: Normal Color, Warm, Dry Head: Atraumatic, Normacephalic Eye(s): bilateral: Normal Inspection, PERRL, EOMI Nose: Normal Oral Mucosa: Moist Tongue: Normal Appearing Lips: Normal Appearing Throat: Normal Neck: Normal, Normal ROM, Supple Cardiovascular: Rhythm Regular Respiratory: Normal Breath Sounds Gastrointestinal/Abdominal: Soft, No Tenderness Back: Normal Inspection Extremity: Normal ROM, No Deformity Neurological/Psych: Oriented x3, Normal Speech ED Course And Treatment O2 Sat by Pulse Oximetry: 99 Pulse Ox Interpretation: Normal - Radiology CXR: Interpreted by Me, Viewed By Me CXR Interpretation: Yes: No Acute Disease. No: Infiltrates Progress Note: Albuterol nebs, phenergan with codeine and prednisone PO were ordered. Pt remains stable, active in ED wi VSS. Pt advised to maintain good PO hydration and fever management and close follow up with PMD in 1-2 days. Return precautions discussed and understood by pt who understands and agrees with plan Reassessment Condition: Improved Medical Decision Making Medical Decision Making: Impression: influenza, viral illness Will give breathing treatment, Benadryl, and Tylenol and reevaluate. Patient feeling improved. Will discharge home with Tamiflu. Disposition Counseled Patient/Family Regarding: Diagnosis, Need For Followup - Disposition Disposition: HOME/ ROUTINE Disposition Time: 19:39 Condition: STABLE Additional Instructions: Increase PO fluids Take meds as directed Return to ER if worse Prescriptions: Benzonatate [Tessalon Perles] 100 mg PO TID #20 sgl Cetirizine HCl [Zyrtec] 10 mg PO DAILY #20 capsule Ibuprofen [Motrin] 600 mg PO Q6H #24 tab Oseltamivir [Tamiflu] 75 mg PO BID #10 cap Instructions: Cough, Runny Nose, and the Common Cold (DC) Forms: [facility] (Bengali) - Clinical Impression Clinical Impression: Influenza-like illness - Scribe Statement The provider has reviewed the documentation as recorded by the Scribe The provider has reviewed the documentation as recorded by the Scribe (Rosalio Gleason)
[2017-10-31] MEDS ORDERED: DiphenhydrAMINE 12.5 mg/5 ml LIQ UD (5 ml) PO STA (19:40)
[2017-10-31] MEDS ORDERED: Albuterol 0.083% Inhal Sol (2.5 mg/3 mL) UD ONE (19:51)
[2017-10-31] MEDS: Albuterol 0.083% Inhal Sol (2.5 mg/3 mL) UD INH SCH ×2 (20:01→20:15)
[2017-10-31 20:29] VITALS: PULSE 71; RESP 20; TEMP 98.8
[2017-10-31 21:37] VITALS: O2SAT 99
--- NOTE | 2017-11-01 08:37 | RAD ---
Chest x-ray two views History: Cough. Shortness of breath. Comparison: 12/13/2016 Findings: No focal infiltrate or effusion. Heart size within normal limits. Bibasilar breast and nipple shadows. Impression: No focal infiltrate or effusion.
== END 2017-10-31 21:45 | disposition home or self-care (01) ==
LOC: C.ER 17:17
DX: J11.1 Influenza due to unidentified influenza virus with other respiratory manifestations (principal)

== ENCOUNTER 2018-10-28 11:01 | Emergency (ER) | payer MEDICAID ==
[2018-10-28 11:34] VITALS: BP 121/65; PULSE 68; RESP 18; TEMP 98.8; O2SAT 100
[2018-10-28] MEDS ORDERED: Lidocaine 5% Patch TD STA (11:55)
[2018-10-28] MEDS ORDERED: guaiFENesin 600 mg ER Tab PO STA (11:58)
--- NOTE | 2018-10-28 11:59 | C.PDOC ---
History Of Present Illness 43 y/o female comes in to ED complaining of a nonproductive cough and mucus in throat for the past 2 days, and right anterior shoulder pain that radiates up to her neck, worse with movement. Patient states that she thinks shes been exposed to meningitis after a neighbors child in her building recently from meningitis, unsure of what type. Patient reports she is often around the mother of the child. She denies headache, dizziness, fever, or visual changes. Time Seen by Provider: 10/28/18 11:37 Chief Complaint (Nursing): Medical Clearance History Per: Patient History/Exam Limitations: no limitations Onset/Duration Of Symptoms: Days Current Symptoms Are (Timing): Still Present Past Medical History Reviewed: Historical Data, Nursing Documentation, Vital Signs Vital Signs: Last Vital Signs Temp 98.8 F 10/28/18 11:25 Pulse 68 10/28/18 11:25 Resp 18 10/28/18 11:25 BP 121/65 10/28/18 11:25 Pulse Ox 100 10/28/18 11:25 - Medical History PMH: Anxiety, Asthma, Depression, Gastritis Comment Only: Bipolar Disorder (anxiety) Surgical History: Appendectomy Family History: States: No Known Family Hx - Social History Hx Tobacco Use: No Hx Alcohol Use: No Hx Substance Use: No - Immunization History Hx Tetanus Toxoid Vaccination: No Hx Influenza Vaccination: No Hx Pneumococcal Vaccination: No Review Of Systems Constitutional: Negative for: Fever, Chills Respiratory: Positive for: Cough (nonproductive) Musculoskeletal: Positive for: Shoulder Pain (Right anterior) Neurological: Negative for: Headache, Dizziness Physical Exam - Physical Exam Appears: Non-toxic, No Acute Distress Skin: Warm, Dry Head: Atraumatic, Normacephalic Eye(s): bilateral: Normal Inspection Ear(s): Bilateral: Normal Oral Mucosa: Moist Throat: Normal, No Erythema, No Exudate Neck: Other (Tender to palpation at right lateral neck, no meningismus) Cardiovascular: Rhythm Regular, No Murmur Respiratory: Normal Breath Sounds, No Rales, No Rhonchi, No Wheezing Extremity: Tenderness (to palpation at right anterior shoulder), No Swelling Extremity: Bilateral: Atraumatic, Normal Color And Temperature, Normal ROM Neurological/Psych: Oriented x3, Normal Speech ED Course And Treatment O2 Sat by Pulse Oximetry: 100 (RA) Pulse Ox Interpretation: Normal Progress Note: Patient was given mucinex and rifampin PO, and first dose of prophylactic antibiotics. Will be discharged home with rifadin and tessalon. Disposition Counseled Patient/Family Regarding: Diagnosis, Need For Followup, Rx Given - Disposition Referrals: [facility] [Outside] Disposition: HOME/ ROUTINE Disposition Time: 12:00 Condition: STABLE Additional Instructions: FOLLOW UP WITH YOUR DOCTOR IN 1-2 DAYS USE YOUR DICLOFENAX AND FLEXERIL FOR PAIN USE MEDICATIONS DIRECTED RETURN TO ER IF SYMPTOMS WORSEN Prescriptions: Benzonatate [Tessalon Perles] 100 mg PO BID PRN #15 sgl PRN Reason: Cough Benzonatate [Tessalon Perles] 100 mg PO BID PRN #15 sgl PRN Reason: Cough Lidocaine 5% [Lidoderm] 1 patch TOP DAILY PRN #10 patch PRN Reason: pain Rifampin [Rifadin] 600 mg PO BID #6 capsule Instructions: Osteoarthritis (DC), Viral Upper Respiratory Infection, Adult (DC) Forms: [employer] (Zimbabwean) Print Language: UZBEK - Clinical Impression Clinical Impression: Right shoulder pain, Viral upper respiratory illness, Exposure to meningitis - Scribe Statement The provider has reviewed the documentation as recorded by the Jesus Rios Provider Attestation: All medical record entries made by the Jesus were at my direction and personally dictated by me. I have reviewed the chart and agree that the record accurately reflects my personal performance of the history, physical exam, medical decision making, and the department course for this patient. I have also personally directed, reviewed, and agree with the discharge instructions and disposition.
[2018-10-28] MEDS ORDERED: Lidocaine 5% Patch TD ONE (12:07)
== END 2018-10-28 12:32 | disposition home or self-care (01) ==
LOC: C.ER 11:01
DX: M25.511 Pain in right shoulder (principal); J06.9 Acute upper respiratory infection, unspecified; Z20.811 Contact with and (suspected) exposure to meningococcus

== ENCOUNTER 2018-11-09 09:05 | Emergency (ER) | payer MEDICAID ==
[2018-11-09 09:16] VITALS: BP 141/89; PULSE 71; RESP 18; TEMP 97.9; O2SAT 100
--- NOTE | 2018-11-09 09:26 | C.PDOC ---
History Of Present Illness WORSENING R SHOULDER PAIN X 3 DAYS. R SHOUDLER PAIN SINCE 10/26, INITIALLY LOCALIZED TOP OF SHOULDER NOW FEELS "SHARP AND STABBING PAIN" RADIATION UPPER ARM. WORSE W MOVEMENT/POSITION. NO IMPROVE W LIDODERM AND FLEXERIL. PS SEES PAIN MGMT FOR NEUROPATHY AND DISC DISEASE, ON MED MARIJUANA, NEURONTIN AND FLEXERIL. CURRENT PAIN MEDS NO IMPROVE. SEEN 10/28 W SIM COMPLAINT, GIVEN LIDODERM. NO WEAK/NUMB, TRAUMA OTHER ASSOC SX EXAM MILD DIST NONTOXIC NECK SUPPLE NONTEND AROM WO DIFF EXT RUE LIMITED AROM DUE TO PAIN; +SPASM TOP R SHOULDER W LOCAL TEND; NO DEFORM SKI NINTACT NEURO INTACT MDM PT ADVISED POSSIBLE NEED FOR OUTPT MRI NECK, SHOULDER; SPECIALIST EVAL. PERCOCET, ADVISED OF POSSIBLE SEDATIVE SIDE EFFECTS FROM NEURONTIN AND MARIJUANA. FU PMD, PAIN MGMT. Time Seen by Provider: 11/09/18 09:22 Chief Complaint (Nursing): Upper Extremity Problem/Injury History Per: Patient History/Exam Limitations: no limitations Onset/Duration Of Symptoms: Days Current Symptoms Are (Timing): Still Present Severity: Moderate Past Medical History Reviewed: Historical Data, Nursing Documentation, Vital Signs Vital Signs: Last Vital Signs Temp 97.9 F 11/09/18 09:10 Pulse 71 11/09/18 09:10 Resp 18 11/09/18 09:10 BP 141/89 11/09/18 09:10 Pulse Ox 100 11/09/18 09:10 - Medical History PMH: Anxiety, Arthritis, Asthma, Back Problems, Depression, Gastritis Comment Only: Bipolar Disorder (anxiety) Surgical History: Appendectomy Family History: States: No Known Family Hx - Social History Hx Tobacco Use: No Hx Alcohol Use: No Hx Substance Use: Yes - Immunization History Hx Tetanus Toxoid Vaccination: No Hx Influenza Vaccination: No Hx Pneumococcal Vaccination: No Review Of Systems Except As Marked, All Systems Reviewed And Found Negative. Musculoskeletal: Positive for: Shoulder Pain (right shoulder pain) Neurological: Negative for: Weakness, Numbness Physical Exam - Physical Exam Appears: Non-toxic, Other (mild distress) Skin: Normal Color, Warm, Dry, Other (skin intact to right shoulder) Head: Atraumatic, Normacephalic Eye(s): bilateral: Normal Inspection Neck: Normal ROM (AROM w/o difficulty), No Midline Cervical Tenderness, No Paracervical Tenderness, Supple Extremity: No Normal ROM (limited AROM in RUE secondary to pain), No Deformity, Other (spasm to top right shoulder with local tenderness) Neurological/Psych: Oriented x3, Normal Speech, Normal Motor, Normal Sensation ED Course And Treatment O2 Sat by Pulse Oximetry: 100 (RA) Pulse Ox Interpretation: Normal Medical Decision Making Medical Decision Making: Plan: --Naproxen PO --Decadron PO --Percocet PO Updates SLING APPLIED BY POLICE PATROL OFFICER. PT ADVISED POSSIBLE NEED FOR OUTPT MRI NECK, SHOULDER; SPECIALIST EVAL. PERCOCET, ADVISED OF POSSIBLE SEDATIVE SIDE EFFECTS FROM NEURONTIN AND MARIJUANA. FU PMD, PAIN MGMT. Disposition Counseled Patient/Family Regarding: Diagnosis, Need For Followup, Rx Given - Disposition Referrals: Balbir Arteaga III, MD [Staff Provider] - [facility] [Outside] [facility] [Outside] [facility] [Other] Disposition: HOME/ ROUTINE Disposition Time: 09:38 Condition: IMPROVED Prescriptions: Naproxen 250 mg PO BID #30 tablet oxyCODONE/Acetaminophen [Percocet 5/325 mg Tab] 1 ea PO Q6 PRN #10 tab PRN Reason: Pain, Moderate (4-7) Instructions: Radiculopathy (DC), Shoulder Tendinopathy (DC) Forms: [facility] (Wallisian), Work Excuse - Clinical Impression Clinical Impression: Shoulder pain, Radiculopathy of arm - Scribe Statement The provider has reviewed the documentation as recorded by the Jesus Jin Provider Attestation: All medical record entries made by the Jesus were at my direction and personally dictated by me. I have reviewed the chart and agree that the record accurately reflects my personal performance of the history, physical exam, medical decision making, and the department course for this patient. I have also personally directed, reviewed, and agree with the discharge instructions and disposition. Orthopedic Care Application Of:: Sling
[2018-11-09] MEDS ORDERED: Naproxen 550 mg Tab PO STA (09:37)
[2018-11-09] MEDS ORDERED: Oxycodone/Acetaminophen 5/325 mg Tab PO STA (09:37)
[2018-11-09] MEDS ORDERED: Oxycodone/Acetaminophen 5/325 mg Tab ONE (09:51)
[2018-11-09] MEDS ORDERED: Naproxen 550 mg Tab PO ONE (09:51)
== END 2018-11-09 09:55 | disposition home or self-care (01) ==
LOC: C.ER 09:05
DX: M54.10 Radiculopathy, site unspecified (principal); M25.511 Pain in right shoulder
CPT/HCPCS: 99283; J8540

== ENCOUNTER 2018-11-17 12:24 | Emergency (ER) | payer MEDICAID | END 2018-11-17 16:33 | disposition home or self-care (01) | LOC: C.ER 12:24 ==

== ENCOUNTER 2018-12-04 17:46 | Emergency (ER) | payer MEDICAID ==
[2018-12-04 17:57] VITALS: BP 135/84; PULSE 64; RESP 18; TEMP 98.7; O2SAT 100
[2018-12-04] MEDS ORDERED: Albuterol 0.083% Inhal Sol (2.5 mg/3 mL) UD INH STA (18:45)
[2018-12-04] MEDS ORDERED: Albuterol-Ipratrop 3 mg / 0.5 (3 ml) UD IH STA (18:45)
[2018-12-04] MEDS ORDERED: Albuterol-Ipratrop 3 mg / 0.5 (3 ml) UD ONE (18:59)
[2018-12-04] MEDS ORDERED: Albuterol 0.083% Inhal Sol (2.5 mg/3 mL) UD ONE (18:59)
--- NOTE | 2018-12-04 19:50 | C.PDOC ---
History Of Present Illness 43 year old female, whose past medical history includes asthma, presents to the ED for evaluation of cough and shortness of breath which began two days ago. Patient denies fever, chills. Time Seen by Provider: 12/04/18 18:31 Chief Complaint (Nursing): Cough, Cold, Congestion History Per: Patient History/Exam Limitations: no limitations Onset/Duration Of Symptoms: Days (2) Current Symptoms Are (Timing): Still Present Additional History Per: Patient Past Medical History Reviewed: Historical Data, Nursing Documentation, Vital Signs Vital Signs: Last Vital Signs Temp 98.7 F 12/04/18 17:54 Pulse 64 12/04/18 17:54 Resp 18 12/04/18 17:54 BP 135/84 12/04/18 17:54 Pulse Ox 100 12/04/18 17:54 - Medical History PMH: Anxiety, Arthritis, Asthma, Back Problems, Depression, Gastritis Comment Only: Bipolar Disorder (anxiety) Surgical History: Appendectomy Family History: States: Unknown Family Hx - Social History Hx Tobacco Use: No Hx Alcohol Use: No Hx Substance Use: Yes - Immunization History Hx Tetanus Toxoid Vaccination: No Hx Influenza Vaccination: No Hx Pneumococcal Vaccination: No Review Of Systems Constitutional: Negative for: Fever, Chills Respiratory: Positive for: Cough, Shortness of Breath Physical Exam - Physical Exam Appears: Non-toxic, No Acute Distress Skin: Normal Color, Warm, Dry Head: Atraumatic, Normacephalic Eye(s): bilateral: Normal Inspection Oral Mucosa: Moist Neck: Supple Chest: Symmetrical, No Deformity, No Tenderness Cardiovascular: Rhythm Regular, No Murmur Respiratory: No Rales, No Rhonchi, Wheezing (slight), Other (speaking in complete sentences ) Extremity: Normal ROM, Capillary Refill (less than 2 seconds ) Neurological/Psych: Normal Speech, Normal Cognition ED Course And Treatment O2 Sat by Pulse Oximetry: 100 Pulse Ox Interpretation: Normal Progress Note: CXR ordered and reviewed. Results are unremarkable. Albuterol INH, Zithromax PO, and Prednisone PO given. On reassessment, patient is resting comfortably, showing no signs of respiratory distress and reports an improvement in symptoms. Patient will be given Bronchitis discharge instructions and is advised to follow up with PMD within 1-2 days for further evaluation. Disposition - Disposition Disposition: HOME/ ROUTINE Disposition Time: 19:48 Condition: STABLE Additional Instructions: Follow up with PMD within 1-2 days. Return to ED if feel worse. 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 - Scribe Statement The provider has reviewed the documentation as recorded by the Scribe (Eugenia Chung) All medical record entries made by the Scribe were at my direction and personally dictated by me. I have reviewed the chart and agree that the record accurately reflects my personal performance of the history, physical exam, medical decision making, and the department course for this patient. I have also personally directed, reviewed, and agree with the discharge instructions and disposition.
--- NOTE | 2018-12-05 09:14 | RAD ---
Date of service: 12/04/2018 HISTORY: Cough and wheezing COMPARISON: Comparison made with prior chest radiograph dated 11/17/2018. TECHNIQUE: Chest PA and lateral views FINDINGS: LUNGS: No active pulmonary disease. PLEURA: No significant pleural effusion identified. No pneumothorax apparent. CARDIOVASCULAR: No aortic atherosclerotic calcification present. Normal cardiac size. No pulmonary vascular congestion. OSSEOUS STRUCTURES: No significant abnormalities. VISUALIZED UPPER ABDOMEN: Normal. OTHER FINDINGS: None. IMPRESSION: No active disease.
== END 2018-12-04 19:58 | disposition home or self-care (01) ==
LOC: C.ER 17:46
DX: J40 Bronchitis, not specified as acute or chronic (principal)